=== PATIENT | female | born 1955 | race Caucasian/White ===

== ENCOUNTER → 2016-07-19 | Outpatient (CLI) | payer OTHER ==
--- NOTE | 2016-07-20 07:48 | MM ---
Reason for exam: history of breast cancer, mastectomy. Last mammogram was performed 1 year and 10 months ago. History: Patient is postmenopausal and has history of breast cancer at age 42. Benign US left guided mammotome of the left breast, January 17, 2006. Malignant lumpectomy of the right breast, March 24, 1998. Malignant excisional biopsy of the right breast, February 25, 1998. Mastectomy of the right breast. Chemotherapy. Physical Findings: Nurse did not find any significant physical abnormalities on exam. MG Diagnostic Mammo LT w CAD CC and MLO view(s) were taken of the left breast. Prior study comparison: October 02, 2014, left breast MG diagnostic mammo LT w CAD. October 15, 2013, left breast MG diagnostic mammo LT w CAD. There are scattered fibroglandular densities. Finding #1: There is a round mass in the left breast retroareolar position. Finding #2: There are grouped/clustered calcifications in the left breast. Previous mammotome biopsy in the left breast. New finding since October 02, 2014 and October 15, 2013. These results were verbally communicated with the patient and result sheet given to the patient on 07/19/16. ASSESSMENT: Incomplete: need additional imaging evaluation, BI-RAD 0 RECOMMENDATION: Ultrasound of the left breast. (True lateral left)
--- NOTE | 2016-07-20 07:53 | USB ---
Reason for exam: additional evaluation requested from abnormal screening. History: Patient is postmenopausal and has history of breast cancer at age 42. Benign US left guided mammotome of the left breast, January 17, 2006. Malignant lumpectomy of the right breast, March 24, 1998. Malignant excisional biopsy of the right breast, February 25, 1998. Mastectomy of the right breast. Chemotherapy. US Breast Limited LT Left breast ultrasound demonstrates a 4 x 2 x 4mm oval, cystic leason at 6 o'clock. These results were verbally communicated with the patient and result sheet given to the patient on 07/19/16. ASSESSMENT: Benign, BI-RAD 2 RECOMMENDATION: Follow-up diagnostic mammogram of the left breast in 6 months. (for calcifications)
== END | disposition home or self-care (01) ==
LOC: RADMAMWWP 14:26
PROVIDERS: ATTEND Family Medicine
DX: R92.8 Other abnormal and inconclusive findings on diagnostic imaging of breast (principal)
CPT/HCPCS: 76642; G0206

== ENCOUNTER 2018-07-26 15:38 | Emergency (ER) | payer OTHER ==
--- NOTE | 2018-07-26 16:01 | ED ---
General Adult HPI - General Chief complaint: Upper Respiratory Infection Stated complaint: cough Time Seen by Provider: 07/26/18 15:47 Source: patient Mode of arrival: ambulatory Limitations: no limitations - History of Present Illness Initial comments: Dictation was produced using [employer] dictation software. please excuse any grammatical, word or spelling errors. Chief Complaint: 62-year-old female with a remote history of breast cancer presents with 1 month history of cough. History of Present Illness: Patient 62-year-old female with remote history of breast cancer status post mass excision and chemotherapy in 1996. States she's been having a cough or proximal one month. Patient does report some nasal congestion and rhinorrhea. Patient states that her cough has been persistent over the last 4 weeks. She does report multiple sick contacts at work. She works as a apartment leasing manager. Patient has any shortness of breath. Patient states that her cough is sometimes productive of yellow sputum. Denies any chest pain. Denies any constitutional symptoms. Patient denies any history of smoking. No history of COPD or asthma. No history of congestive heart failure. The ROS documented in this emergency department record has been reviewed and confirmed by me. Those systems with pertinent positive or negative responses have been documented in the HPI. All other systems are other negative and/or noncontributory. PHYSICAL EXAM: General Impression: Alert and oriented x3, not in acute distress HEENT: Normocephalic atraumatic, extra-ocular movements intact, pupils equal and reactive to light bilaterally, mucous membranes moist. Cardiovascular: Heart regular rate and rhythm, S1&S2 audible, no murmurs, rubs or gallops Chest: Mild crackling at the left lung base Abdomen: Bowel sounds present, abdomen soft, non-tender, non-distended, no organomegaly Musculoskeletal: Pulses present and equal in all extremities, no peripheral edema Motor: no focal deficits noted Neurological: CN II-XII grossly intact, no focal motor or sensory deficits noted Skin: Intact with no visualized rashes Psych: Normal affect and mood ED course: 62-year-old female with chief complaint of cough. As upon arrival are within acceptable limits. Clinical presentation consistent to viral URI causing cough. Patient is well-appearing at this time. She does request a work note. Two-view chest x-ray is unremarkable. Patient not coughing 1 emergency department. Patient given albuterol inhaler when necessary coughing. Patient agreeable discharge. - Related Data Home Medications Medication Instructions Recorded Confirmed Calcium Carbonate/Vitamin D3 1 tab PO DAILY 10/17/14 07/26/18 [Calcium 600 + Vit D Tablet] Previous Rx's Medication Instructions Recorded Albuterol Inhaler [Ventolin Hfa 1 - 2 puff INHALATION RT-Q6H PRN 07/26/18 Inhaler] #1 inhaler Allergies Allergy/AdvReac Type Severity Reaction Status Date / Time ether Allergy Vomiting Verified 07/26/18 16:14 Penicillins Allergy Rash/Hives Verified 07/26/18 16:14 Review of Systems ROS Statement: Those systems with pertinent positive or pertinent negative responses have been documented in the HPI. ROS Other: All systems not noted in ROS Statement are negative. Past Medical History Past Medical History: Cancer Additional Past Medical History / Comment(s): BREAST CANCER 1997. History of Any Multi-Drug Resistant Organisms: None Reported Past Surgical History: Bladder Surgery, Breast Surgery, Orthopedic Surgery, Tonsillectomy, Tubal Ligation Additional Past Surgical History / Comment(s): RIGHT MASTECTOMY. BLADDER SUSP ENSION. right ankle plate and pins 2013. skin ca upper lip 2011 Past Anesthesia/Blood Transfusion Reactions: Postoperative Nausea & Vomiting (PONV) Past Psychological History: No Psychological Hx Reported Smoking Status: Former smoker Past Alcohol Use History: Occasional Past Drug Use History: None Reported - Past Family History Mother Family Medical History: Cancer Additional Family Medical History / Comment(s): cevical General Exam Limitations: no limitations Course Vital Signs 07/26/18 07/26/18 15:42 16:37 Temperature 97.3 F L Pulse Rate 52 L Respiratory 18 20 Rate Blood Pressure 152/81 O2 Sat by Pulse 98 Oximetry Disposition Clinical Impression: Cough Disposition: HOME SELF-CARE Condition: Good Instructions (If sedation given, give patient instructions): Upper Respiratory Infection (ED) Prescriptions: Albuterol Inhaler [Ventolin Hfa Inhaler] 1 - 2 puff INHALATION RT-Q6H PRN #1 inhaler PRN Reason: Dyspnea Is patient prescribed a controlled substance at d/c from ED?: No Referrals: Stephan Arnett MD [Primary Care Provider] - 1-2 days Time of Disposition: 17:52
--- NOTE | 2018-07-26 16:32 | XR ---
EXAMINATION TYPE: XR chest 2V DATE OF EXAM: 07/26/2018 COMPARISON: None INDICATION: Pain TECHNIQUE: Frontal and lateral views of the chest are obtained. FINDINGS: The heart size is normal. The pulmonary vasculature is normal. The lungs are clear. IMPRESSION: 1. No acute pulmonary process.
[2018-07-26 18:14] VITALS: BP 141/72; PULSE 58; RESP 18; TEMP 98.7
== END 2018-07-26 18:15 | disposition home or self-care (01) ==
LOC: EC 15:38
DX: R05 Cough (principal); R09.81 Nasal congestion; J34.89 Other specified disorders of nose and nasal sinuses; Z85.3 Personal history of malignant neoplasm of breast; Z85.828 Personal history of other malignant neoplasm of skin; Z87.891 Personal history of nicotine dependence; Z79.899 Other long term (current) drug therapy; Z88.0 Allergy status to penicillin; Z91.09 Other allergy status, other than to drugs and biological substances
CPT/HCPCS: 71046; 99283

== ENCOUNTER → 2018-09-14 | Outpatient (CLI) | payer OTHER ==
--- NOTE | 2018-09-14 12:18 | CT ---
EXAMINATION TYPE: CT facial bones wo con DATE OF EXAM: 09/14/2018 COMPARISON: None HISTORY: contusion bridge of nose/fell [address] DLP: 416.5 mGycm CONTRAST: 0 mL of Isovue 300 The paranasal sinuses are examined in the axial plane at 2 mm thick sections. Reconstructed images i n the coronal plane were obtained. No displaced fractures are evident. Nasal bones are intact. Medial bowles of the orbits are intact. Th ere is a retention cyst within the left maxillary sinus. Small amount fluid may be within the right m axillary sinus. Orbital floors appear intact. The maxillary sinuses are clear. The ethmoid air cells are clear. The sphenoid sinuses are clear. The frontal sinuses are clear. The septum is evaluated. There is septal deviation to the right. Right septal spur is also present. The ostiomeatal units are patent. Orbits appear symmetrical. Some mild soft tissue swelling may be within the cheeks rate IMPRESSIONS: 1. No acute fractures evident. 2. Retention cysts and mucosal thickening within the maxillary sinuses. 3. Right septal deviation and right septal spurring.
== END | disposition home or self-care (01) ==
LOC: RADCTMAIN 11:19
PROVIDERS: ATTEND Emergency Medicine
DX: S00.83XA Contusion of other part of head, initial encounter (principal); J34.2 Deviated nasal septum; J34.89 Other specified disorders of nose and nasal sinuses
CPT/HCPCS: 70486

== ENCOUNTER → 2018-09-20 | Outpatient (CLI) | payer OTHER ==
--- NOTE | 2018-09-20 12:55 | XR ---
EXAMINATION TYPE: XR wrist complete RT DATE OF EXAM: 09/20/2018 CLINICAL HISTORY: pain TECHNIQUE: Frontal, lateral and oblique images of the right wrist are obtained. COMPARISON: None. FINDINGS: There is no acute fracture/dislocation evident. The joint spaces appear within normal limits. The o verlying soft tissue appears unremarkable. IMPRESSION: There is no acute fracture or dislocation seen. ICD 10 NO FRACTURE, INITIAL EVALUATION
== END ==
LOC: RADXRMAIN 12:24
PROVIDERS: ATTEND Emergency Medicine
DX: S60.211D Contusion of right wrist, subsequent encounter (principal)

== ENCOUNTER → 2018-09-27 | Outpatient (CLI) | payer OTHER ==
--- NOTE | 2018-09-27 13:03 | CT ---
EXAMINATION TYPE: CT brain wo con DATE OF EXAM: 09/27/2018 COMPARISON: CT brain 02/13/2015 HISTORY: Fall on 09/13/18. Headache and visual disturbance CT DLP: 945.5 mGycm Automated exposure control for dose reduction was used. Helical imaging through the brain. FINDINGS: There are cerebral vascular calcifications. Cortical atrophy is likely age-related. There is no hemor rhage or hydrocephalus. No depressed skull fracture. Mild inflammatory changes present within the eth moid air cells. Orbits show symmetric appearance. Brain density is stable. IMPRESSION: NO ACUTE ABNORMALITY.
== END | disposition home or self-care (01) ==
LOC: RADCTMAIN 12:33
PROVIDERS: ATTEND Emergency Medicine
DX: S00.83XD Contusion of other part of head, subsequent encounter (principal)
CPT/HCPCS: 70450

== ENCOUNTER → 2018-10-06 | Outpatient (CLI) | payer OTHER ==
--- NOTE | 2018-10-06 16:01 | MR ---
EXAMINATION TYPE: MR wrist RT wo con DATE OF EXAM: 10/06/2018 COMPARISON: 09/20/2018 right wrist radiographs HISTORY: Contusion of right wrist TECHNIQUE: Multiplanar, multisequence images of the right wrist were acquired without intravenous con trast per department protocol. FINDINGS: There is a radiographically occult comminuted nondisplaced fracture of the triquetrum with multiple T 1 and T2 hypointense linear signal abnormalities indicating fracture lines. There is additionally dif fuse bone marrow edema throughout the triquetrum. The capitate also demonstrates bone marrow edema a lthough no discrete fracture line is seen. Mild bone marrow edema is also present of the hamate witho ut discrete fracture line into a much lesser degree of the remaining carpal bones. The carpal carpal interspaces are maintained. The scaphoid lunate ligament appears intact as does the lunatotriquetral ligament. Distal radial ulnar joint is maintained. Although a central perforation within the triangular fibrocartilage is typically physiologic and post erior bands appear intact there is a trace amount of fluid in the distal radioulnar joint suspicious for triangle fibrocartilage tear. The anterior band is somewhat ill-defined and therefore tear suspec clifford. There is a split tear seen of the extensor carpi ulnaris as well as increased tendon thickness a nd a very small amount of fluid seen laterally to the triangle fibrocartilage at the volar aspect of the ulnar styloid process. The extensor compartment, ulnar nerve, and radial nerve are unremarkable. Mild subcutaneous edema is seen overlying the medial wrist (ulnar side). Alignment of the wrist is maintained. Very mild degener ative changes seen of the first carpometacarpal joint with small opposing surface osteophytes. Early subchondral cyst formation is seen of the base of the fifth metacarpal. IMPRESSION: 1. Radiographically occult comminuted nondisplaced fracture of the triquetrum with bone marrow edema. Mild bone marrow edema is also seen multifocally the remaining carpal bones. 2. Extensor carpi ulnaris split tear. 3. Suspicion for anterior band triangular fibrocartilage tear with a small amount of fluid in the dis lorenzo radioulnar joint. A Yellow level critical message alert has been initiated for Horacio Magallanes DO via the [employer] Critical Results System on 10/06/2018 3:58 PM. This message alert has been sent to Horacio W T awney, DO via the preferences provided by the clinician for the receipt of Radiology Critical Finding s. Message ID [id number].
== END | disposition home or self-care (01) ==
LOC: RADMRIMAIN 12:07
PROVIDERS: ATTEND Emergency Medicine
DX: S62.114A Nondisplaced fracture of triquetrum [cuneiform] bone, right wrist, initial encounter for closed fracture (principal); S56.511A Strain of other extensor muscle, fascia and tendon at forearm level, right arm, initial encounter; S60.221D Contusion of right hand, subsequent encounter; S00.83XD Contusion of other part of head, subsequent encounter

== ENCOUNTER → 2018-11-21 | Outpatient (CLI) | payer BC ==
--- NOTE | 2018-11-23 11:38 | MM ---
Reason for exam: screening (asymptomatic). Last mammogram was performed 2 years and 4 months ago. History: Patient is postmenopausal, has history of breast cancer at age 42, and history of other cancer. Benign US left guided mammotome of the left breast, January 17, 2006. Malignant lumpectomy of the right breast, March 24, 1998. Malignant excisional biopsy of the right breast, February 25, 1998. Mastectomy of the right breast. Chemotherapy. Physical Findings: A clinical breast exam by your physician is recommended on an annual basis and results should be correlated with mammographic findings. MG Screen Kamran Unilateral W/Cad Bilateral CC and MLO view(s) were taken. Prior study comparison: July 19, 2016, left breast MG diagnostic mammo LT w CAD. October 02, 2014, left breast MG diagnostic mammo LT w CAD. Previous mammotome biopsy in the left breast. Central medial asymmetric density is unchanged from 2013. However, it has increased in density. ASSESSMENT: Incomplete: need additional imaging evaluation, BI-RAD 0 RECOMMENDATION: Special view mammogram of the left breast. (3D) If lesion persists on supplemental views, image directed ultrasound is recommended. [facility] will attempt to contact patient to return for supplemental views and ultrasound if indicated. LEAH
== END | disposition home or self-care (01) ==
LOC: RADMAMWWP 09:55
PROVIDERS: ATTEND Family Medicine
DX: Z12.31 Encounter for screening mammogram for malignant neoplasm of breast (principal)
CPT/HCPCS: 77067

== ENCOUNTER → 2018-12-04 | Outpatient (CLI) | payer BC ==
--- NOTE | 2018-12-04 11:32 | MM ---
Reason for exam: additional evaluation requested from abnormal screening. Last mammogram was performed less than 1 month ago. History: Patient is postmenopausal, has history of breast cancer at age 42, and history of other cancer. Benign US left guided mammotome of the left breast, January 17, 2006. Malignant lumpectomy of the right breast, March 24, 1998. Malignant excisional biopsy of the right breast, February 25, 1998. Mastectomy of the right breast. Chemotherapy. Physical Findings: Nurse did not find any significant physical abnormalities on exam. MG Work Up Mamm w CAD LT Spot compression CC, spot compression MLO, and LM view(s) were taken of the left breast. Prior study comparison: November 21, 2018, bilateral MG screen sunny unilateral w/cad. July 19, 2016, left breast MG diagnostic mammo LT w CAD. The breast tissue is heterogeneously dense. This may lower the sensitivity of mammography. Focal asymmetry is less conspicious in the left breast 12 o'clock 5.7cm from nipple. These results were verbally communicated with the patient and result sheet given to the patient on 12/04/18. ASSESSMENT: Incomplete: need additional imaging evaluation, BI-RAD 0 RECOMMENDATION: Ultrasound of the left breast.
--- NOTE | 2018-12-04 11:33 | USB ---
Reason for exam: additional evaluation requested from abnormal screening. History: Patient is postmenopausal, has history of breast cancer at age 42, and history of other cancer. Benign US left guided mammotome of the left breast, January 17, 2006. Malignant lumpectomy of the right breast, March 24, 1998. Malignant excisional biopsy of the right breast, February 25, 1998. Mastectomy of the right breast. Chemotherapy. US Breast Workup Limited LT Left limited breast ultrasound including focal area of concern, retroareolar and axilla demonstrates no cystic or solid lesion seen. No distinct abnormality. These results were verbally communicated with the patient and result sheet given to the patient on 12/04/18. ASSESSMENT: Negative, BI-RAD 1 RECOMMENDATION: Follow-up diagnostic mammogram of both breasts in 1 year.
== END | disposition home or self-care (01) ==
LOC: RADMAMWWP 10:09
PROVIDERS: ATTEND Family Medicine
DX: R92.8 Other abnormal and inconclusive findings on diagnostic imaging of breast (principal)
CPT/HCPCS: 77065

== ENCOUNTER 2020-07-22 13:03 | Emergency (ER) | payer BC, OTHER ==
[2020-07-22 14:16] VITALS: BP 132/77; PULSE 69; RESP 20; TEMP 98.1
[2020-07-22] MEDS ORDERED: KETOROLAC 15 MG/ML 1 ML VIAL IM STA (14:33)
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
--- NOTE | 2020-07-22 15:08 | XR ---
EXAMINATION TYPE: XR ribs RT w pa chest xray DATE RECEIVED ON: 07/22/2020 DATE PERFORMED: 07/22/2020 COMPARISON: 07/26/2018 HISTORY: Pain intermittent TECHNIQUE: Frontal view of the chest is obtained. Two-view right ribs are obtained. FINDINGS: The heart size is normal. The pulmonary vasculature is normal. The lungs are clear. No a cute fractures are evident. No pneumothorax is evident. IMPRESSION: 1. No acute right rib fractures
[2020-07-22] MEDS ORDERED: ACET/COD 300 MG/30 MG STARTER PACK 6 TAB BTL PO STA (15:41)
== END 2020-07-22 16:05 | disposition home or self-care (01) ==
LOC: EC 13:03
DX: R07.81 Pleurodynia (principal); Z91.048 Other nonmedicinal substance allergy status; Z88.0 Allergy status to penicillin; Z85.3 Personal history of malignant neoplasm of breast
CPT/HCPCS: 71101; 99283; 96372; J1885

== ENCOUNTER → 2021-06-04 | Outpatient (CLI) | payer OTHER ==
[2021-06-04 11:23] VITALS: BP 133/81; PULSE 67; RESP 16; TEMP 97.9
--- NOTE | 2021-06-04 11:42 | P.GSHP ---
History of Present Illness H&P Date: 06/04/21 Chief Complaint: Left breast pain Felicia is a 65-year-old white female who presents in consultation for Nicolette Sargent regarding pain in her left breast. Of significance is the fact that she underwent a right mastectomy in 1996 for a breast cancer. She underwent chemotherapy, no radiation therapy and no hormone therapy. She was seen and treated by Dr. Pate. She follows with Dr. Bansal at this time. She states the pain in her left breast was a shooting pain through her nipple. It has been present for one year. She denies any trauma to the breast. The pain ranges from 0 to 8. It is worse with palpation, or laying on that side. She was 41 when she was diagnosed. She did not have genetic testing. She was told it was a stage II. She denies any lumps masses or nodules of concern on the right chest wall or in the left breast. She does not have any complaints of any nipple discharge or skin changes. [place] [id number]. This revealed a prominent 1.4 cm right axillary lymph node as well as a 7 mm lateral right chest wall lymph node unchanged from 2018. No discrete chest wall abnormality or progressive adenopathy was identified. She underwent a left breast diagnostic mammogram on [id number]. This revealed benign findings and normal interval follow-up was recommended. Caffeine: 1-2 cups coffee/day nicotine:none, second hand smoke: room mate smokes in the house < 1/PPD; exposed for 5 years chocolate: occasional BCP: about 3 years stopped when 17 hormones: none Family History; mother: ovarian in her 50's, she but not from that patient: breast cancer (age at dx. 41) maternal grandfather: stomach cancer paternal grandfather: liver cancer Hormonal History: menarche: 11 , breast fed: no, age at first : 20 menopause: 43 Surgical History: right mastectomy and SNB tubal ligation right ankle plate tonsil bladder suspension Medical History: none Social History: nicotine: Patient does not smoke but is exposed to secondhand smoke Alcohol: none drugs: none - Constitutional Constitutional: Denies chills, Denies fever - EENT Eyes: denies blurred vision, denies pain Ears: left: decreased hearing, deny: tinnitus Ears, nose, mouth and throat: Denies headache, Denies sore throat - Breasts Comment: right mastectomy cancer 1997 Breasts: bilateral: as per HPI - Cardiovascular Cardiovascular: Reports chest pain, Reports shortness of breath - Respiratory Respiratory: Denies cough, Denies 7 - Gastrointestinal Comment: PUD in past Gastrointestinal: Denies abdominal pain, Denies diarrhea, Denies nausea, Denies vomiting - Genitourinary (Female) Genitourinary: Denies dysuria, Denies hematuria - Menstruation Menstruation: Reports postmenopausal - Musculoskeletal Musculoskeletal: Reports myalgias - Integumentary Integumentary: Denies rash - Neurological Neurological: Denies numbness, Denies weakness - Psychiatric Psychiatric: Reports depression, Denies anxiety - Endocrine Comment: weight gain Endocrine: Reports weight change, Denies fatigue - Hematologic/Lymphatic Comment: none - Allergic/Immunologic Allergic/Immunologic: Reports as per HPI, Reports seasonal allergies Past Medical History Past Medical History: Cancer Additional Past Medical History / Comment(s): BREAST CANCER 1997. History of Any Multi-Drug Resistant Organisms: None Reported Past Surgical History: Bladder Surgery, Breast Surgery, Orthopedic Surgery, Tonsillectomy, Tubal Ligation Additional Past Surgical History / Comment(s): RIGHT MASTECTOMY. BLADDER SUSPENSION. right ankle plate and pins 2013. skin ca upper lip 2011 Past Anesthesia/Blood Transfusion Reactions: Postoperative Nausea & Vomiting (PONV) Past Psychological History: No Psychological Hx Reported Smoking Status: Never smoker Past Alcohol Use History: Occasional Past Drug Use History: None Reported - Past Family History Mother Family Medical History: Cancer Additional Family Medical History / Comment(s): cevical Medications and Allergies Home Medications Medication Instructions Recorded Confirmed Type Ergocalciferol [Vitamin D2 (1250 1,250 mcg PO Q30D 07/22/20 07/22/20 History Mcg = 73432 Iu)] Ibuprofen [Motrin] 800 mg PO Q6H PRN 07/22/20 07/22/20 History Multivitamins, Thera [Multivitamin 1 tab PO DAILY 07/22/20 07/22/20 History (formulary)] Allergies Allergy/AdvReac Type Severity Reaction Status Date / Time ether Allergy Vomiting Verified 07/22/20 15:17 Penicillins Allergy Rash/Hives Verified 07/22/20 15:17 Surgical - Exam BMI 37.4 - General no distress - Eyes normal ocular movement - Neck trachea midline - Respiratory normal respiratory effort - Cardiovascular Rhythm: regular Heart Sounds: normal: S1, S2 - Abdomen Abdomen: soft - Integumentary normal turgor - Neurologic no disoriented, no combative - Musculoskeletal normal gait - Psychiatric oriented to time, oriented to person, oriented to place, speech is normal, memory intact Breast Exam: BRA: 40D inspection: right mastectomy, left grade 3 ptosis palpation: right chest wall: Healed scar from prior mastectomy, no evidence of recurrent cancer Right axilla: No adenopathy of concern Left breast: Multi-position on exam well-healed scar in the upper inner quadrant area related to prior Port-A-Cath placement this area is tender and believed to be scar tissue no discrete masses, no discrete mass laterally or any other lesions in the process of concern Left axilla: No adenopathy of concern Shoulder notching noted left shoulder greater secondary to asymmetry and size of the breast Fungal infection under the left breast Results Mammogram results reviewed from 02-17-21 CT scan results reviewed Assessment and Plan Assessment: Impression: 1. Fibrocystic breast changes 2. Mastodynia left breast 3. Patient status post right mastectomy for stage II carcinoma no evidence of local recurrence 4. Intermittent depression 5. Asymmetry related to prior mastectomy resulting in difficulty finding closed to fit and possible back pain Plan: 1. Ultrasound left breast 2. Left breast mammogram repeat and January 2022 3. We have reviewed causes of breast pain and the patient is going to attempt primrose oil 4. Recommendation for genetic testing as patient was premenopausal woman her initial breast cancer was diagnosed and has a family history of ovarian cancer 5. Patients consider if she would like to have a symmetry procedure performed on the left breast CC: Dr. Darin Vines
== END ==
LOC: WWCWWP 10:59
PROVIDERS: ATTEND Surgery
DX: N64.4 Mastodynia (principal); N60.19 Diffuse cystic mastopathy of unspecified breast; N64.89 Other specified disorders of breast; B36.8 Other specified superficial mycoses; F32.A Depression, unspecified; Z90.11 Acquired absence of right breast and nipple; Z88.0 Allergy status to penicillin; Z88.4 Allergy status to anesthetic agent; Z87.891 Personal history of nicotine dependence

== ENCOUNTER → 2021-07-16 | Outpatient (CLI) | payer OTHER ==
[2021-07-16 13:58] VITALS: BP 141/66; PULSE 81; RESP 17; TEMP 98.3
--- NOTE | 2021-07-16 14:26 | P.PN ---
Subjective Progress Note Date: 07/16/21 Principal diagnosis: right breast cancer Felicia is a 65-year-old white female who presents in consultation for Nicolette Sargent regarding pain in her left breast. Of significance is the fact that she underwent a right mastectomy in 1996 for a breast cancer. She underwent chemotherapy, no radiation therapy and no hormone therapy. She was seen and treated by Dr. Pate. She follows with Dr. Bansal at this time. She states the pain in her left breast was a shooting pain through her nipple. It has been present for one year. She denies any trauma to the breast. The pain ranges from 0 to 8. It is worse with palpation, or laying on that side. She was 41 when she was diagnosed. She did not have genetic testing. She was told it was a stage II. She denies any lumps masses or nodules of concern on the right chest wall or in the left breast. She does not have any complaints of any nipple discharge or skin changes. She underwent a computed tomography scan of the chest on . This revealed a prominent 1.4 cm right axillary lymph node as well as a 7 mm lateral right chest wall lymph node unchanged from 2018. No discrete chest wall abnormality or progressive adenopathy was identified. She underwent a left breast diagnostic mammogram on [id number]. This revealed benign findings and normal interval follow-up was recommended. ultrasound of the left breast on 06-09-21 Benign BIRAD 1 Patient did Sil step modification she stopped caffeine intake and started using primrose oil. She states that the pain in the breast is now gone. She did speak with a genetic counselor and declined genetic testing at this time. She has not decided if she would like to have a reduction on the left and/or reconstruction on the right. Caffeine: 1-2 cups coffee/day nicotine:none, second hand smoke: room mate smokes in the house < 1/PPD; exposed for 5 years chocolate: occasional BCP: about 3 years stopped when 17 hormones: none Family History; mother: ovarian in her 50's, she but not from that patient: breast cancer (age at dx. 41) maternal grandfather: stomach cancer paternal grandfather: liver cancer Hormonal History: menarche: 11 , breast fed: no, age at first : 20 menopause: 43 Surgical History: right mastectomy and SNB tubal ligation right ankle plate tonsil bladder suspension Medical History: none Social History: nicotine: Patient does not smoke but is exposed to secondhand smoke Alcohol: none drugs: none - Constitutional Constitutional: Denies chills, Denies fever - EENT Eyes: denies blurred vision, denies pain Ears: left: decreased hearing, deny: tinnitus Ears, nose, mouth and throat: Denies headache, Denies sore throat - Breasts Comment: right mastectomy cancer 1997 Breasts: bilateral: as per HPI - Cardiovascular Cardiovascular: Reports chest pain, Reports shortness of breath - Respiratory Respiratory: Denies cough - Gastrointestinal Comment: PUD in past Gastrointestinal: Denies abdominal pain, Denies diarrhea, Denies nausea, Denies vomiting - Genitourinary (Female) Genitourinary: Denies dysuria, Denies hematuria - Menstruation Menstruation: Reports postmenopausal - Musculoskeletal Musculoskeletal: Reports myalgias - Integumentary Integumentary: Denies rash - Neurological Neurological: Denies numbness, Denies weakness - Psychiatric Psychiatric: Reports depression, Denies anxiety - Endocrine Comment: weight gain Endocrine: Reports weight change, Denies fatigue - Hematologic/Lymphatic Comment: none - Allergic/Immunologic Allergic/Immunologic: Reports as per HPI, Reports seasonal allergies Objective - Vital Signs Vital signs: Vital Signs Temp 98.3 F 07/16/21 13:54 Pulse 81 07/16/21 13:54 Resp 17 07/16/21 13:54 BP 141/66 07/16/21 13:54 Pulse Ox 96 07/16/21 13:54 Intake & Output 07/15/21 07/16/21 07/16/21 18:59 06:59 18:59 Weight 95.254 kg - Exam BMI 37.2 - Constitutional General appearance: Present: cooperative - EENT Eyes: Present: EOMI ENT: Present: hearing grossly normal - Neck Neck: Present: normal ROM - Respiratory Respiratory: bilateral: CTA - Cardiovascular Rhythm: regular Heart sounds: normal: S1, S2 - Gastrointestinal General gastrointestinal: Present: soft - Integumentary Integumentary: Present: normal turgor - Musculoskeletal Musculoskeletal: Present: gait normal - Psychiatric Psychiatric: Present: A&O x's 3, appropriate affect, intact judgment & insight - Additional findings Additional findings: Breast Exam: BRA: 40D inspection: Right chest wall mastectomy, grade 3 ptosis left breast Patient: Right chest wall multiple positional exam no evidence of recurrent cancer Right axilla: No adenopathy of concern Left breast: Multi-positional exam fibrocystic changes no dominant masses or nodules of concern are multiple positional exam Left axilla: No adenopathy of concern Assessment and Plan Assessment: Impression: Patient's breast pain has improved with lifestyle modifications Plan: Patient will be due for a left breast mammogram in January 2022 She is going to think about genetic testing She is going to consider left breast reduction and right breast reconstruction Cc: Nicolette Sargent
== END ==
LOC: WWCWWP 13:46
PROVIDERS: ATTEND Surgery
DX: Z08 Encounter for follow-up examination after completed treatment for malignant neoplasm (principal); Z90.11 Acquired absence of right breast and nipple; Z88.0 Allergy status to penicillin; Z88.4 Allergy status to anesthetic agent; Z87.891 Personal history of nicotine dependence